=== PATIENT | male | born 1995 | race Caucasian/White ===

== ENCOUNTER 2017-08-10 15:01 | Emergency (ER) | payer BC ==
[~2017-08-10] VITALS: Ht 170.2 cm; Wt 62.6 kg
[~2017-08-10 15:01] MED LIST: FLUO40CA8 PO
[2017-08-10 15:09] VITALS: TEMP 36.3; Ht 170.2 cm; Wt 62.6 kg
[2017-08-10] MEDS ORDERED: LORA-741 PO (15:34)
[2017-08-10] MEDS ORDERED: SERT-234 PO (15:34)
[2017-08-10] MEDS ORDERED: NAPR220T PO (15:34)
[2017-08-10] MEDS ORDERED: SODIUM CHLORIDE 0.9% 1000ML 1,000 ML IV STA (15:42)
[2017-08-10] MEDS ORDERED: DiphenhydrAMINE HCL 50 MG/ML VIAL IV STA (15:42)
[2017-08-10] MEDS ORDERED: PROCHLORPERAZINE 5 MG/ML 2 ML VIAL IV STA (15:42)
--- NOTE | 2017-08-10 16:00 | EMERGENCY ROOM VISIT NOTE ---
History First contact with patient: 15:34 Chief Complaint: HEADACHE Stated Complaint: HEADACHE, NAUSEA W/VOMITING History of Present Illness The patient is a 21 year old male who presents to the Emergency Room via private vehicle accompanied by girlfriend with complaints of "headache, nausea with vomiting". The patient states that he's been experiencing headaches for many years. He states that he follows with his family doctor. He states that 2 days ago he developed a headache of gradual onset that acutely worsened. He states that he tried sleeping it off and it did not go away. He states that he had Aleve earlier without relief. He notes this is not the worse headache of his life but is certainly up there. He points to the front portion of his head radiating down the back to the neck as a location of pain that he currently rates as an 8.5/10. There is associated nausea and vomiting 4 episodes today. There are associated chills but no fevers. He denies any speech troubles, extremity weakness, formal diagnosis of migraines, fevers, chest pain, abdominal pain, drug use. Immunizations are up-to-date. There is photophobia as well as sensitivity to sounds. Review of Systems A complete 10-point Review of Systems was discussed with the patient, with pertinent positives and negatives listed in the History of Present Illness. All remaining Review of Systems questions can be considered negative unless otherwise specified. Past Medical/Surgical History Medical Problems: (1) Kidney stones Surgical Problems: (1) No history of previous surgery Family History FH: cancer FH: diabetes mellitus FH: gallbladder disease FH: heart disease FH: hypertension FH: kidney disease Social History Smoking Status: Never Smoker Alcohol Use: occasionally Marital Status: single Housing Status: lives with family Occupation Status: unemployed Current/Historical Medications Scheduled Lorazepam (Ativan), 0.5 MG PO PRN UD Naproxen Sodium (Aleve), 440 MG PO PRN UD Sertraline (Zoloft), 100 MG PO DAILY Physical Exam Vital Signs Date Time Temp Pulse Resp B/P (MAP) Pulse Ox O2 Delivery O2 Flow Rate FiO2 08/10/17 17:57 72 18 129/69 99 08/10/17 16:56 64 18 118/71 99 Room Air 08/10/17 15:09 36.3 72 16 147/91 99 Room Air Physical Exam VITAL SIGNS - Vital signs and nursing notes were reviewed. Stable. Afebrile. GENERAL -21-year-old male appearing his stated age who is in no acute distress. Communicates well with provider and answers questions appropriately. SKIN - Without rashes. No petechial rashes. There are some erythematous dark lesions on the patient's arms that are in splotches. HEAD - NC/AT. EYES - PERRL with EOMI bilaterally. Sclera anicteric. No hyphema. EARS - No deformities of external structures noted on gross examination bilaterally. No pain elicited with palpation of the tragus bilaterally. External auditory canals without discharge or otorrhea. Tympanic membranes pearly back without retraction or bulging. No fluid or purulent material visualized behind the TM. Handle of malleus, umbo, cone of light, pars tensa/ flaccid all easily visualized. NOSE - Midline and without cyanosis. No epistaxis or purulent drainage noted. Septum midline without deviation or septal hematoma noted. MOUTH/OROPHARYNX - Without perioral cyanosis. Buccal mucosa pink and moist and without leukoplakia. Tongue midline with equal elevation of palate bilaterally. No tonsillar hypertrophy, erythema, or exudates noted. Fair dentition noted. NECK - Neck with FROM. Supple to palpation. No lymphadenopathy noted. No nuchal rigidity. There is paraspinal muscular tenderness. LUNGS - Chest wall symmetric without accessory muscle use, intercostals retractions, or central cyanosis. Normal vesicular breath sounds CTA B/L. No wheezes, rales, or rhonchi appreciated. CARDIAC - RRR with S1/S2. No murmur, rubs, or gallops appreciated. EXTREMITIES - No clubbing or peripheral cyanosis. No pretibial edema present. + 5/5 strength noted in UE/LE bilaterally. NEUROLOGIC - Cranial nerves II through XII grossly intact. Sensory intact to light touch throughout. PSYCH - A&O, and cooperates fully with examiner. Pt is very pleasant and interacts well with examiner. Medical Decision & Procedures ER Provider Diagnostic Interpretation: HEAD CT NONCONTRAST CT DOSE: 537.48 mGy.cm HISTORY: Headache TECHNIQUE: Multiaxial CT images of the head were performed without the use of intravenous contrast. Automated exposure control was utilized for this study. A dose lowering technique was utilized adhering to the principles of ALARA. Comparison: None. Findings: The paranasal sinuses and mastoid air cells are clear. The calvarium and skull base are intact. The ventricles and sulci are within normal limits. There is no mass, hematoma, midline shift, or acute infarct. Impression: No acute intracranial abnormality. Electronically signed by: Eddie Person M.D. 08/10/2017 5:17 PM Dictated Date/Time: 08/10/2017 5:11 PM Laboratory Results 08/10/17 16:05 Red Blood Count 5.11, Mean Corpuscular Volume 85.7, Mean Corpuscular Hemoglobin 29.2, Mean Corpuscular Hemoglobin Concent 34.0, Mean Platelet Volume 10.6, Neutrophils (%) (Auto) 66.3, Lymphocytes (%) (Auto) 24.3, Monocytes (%) (Auto) 7.8, Eosinophils (%) (Auto) 1.1, Basophils (%) (Auto) 0.3, Neutrophils # (Auto) 4.24, Lymphocytes # (Auto) 1.55, Monocytes # (Auto) 0.50, Eosinophils # (Auto) 0.07, Basophils # (Auto) 0.02 08/10/17 16:05 Test 08/10/17 16:05 White Blood Count 6.39 K/uL (4.8-10.8) Red Blood Count 5.11 M/uL (4.7-6.1) Hemoglobin 14.9 g/dL (14.0-18.0) Hematocrit 43.8 % (42-52) Mean Corpuscular Volume 85.7 fL (80-100) Mean Corpuscular Hemoglobin 29.2 pg (25-34) Mean Corpuscular Hemoglobin Concent 34.0 g/dl (32-36) Platelet Count 186 K/uL (130-400) Mean Platelet Volume 10.6 fL (7.4-10.4) Neutrophils (%) (Auto) 66.3 % Lymphocytes (%) (Auto) 24.3 % Monocytes (%) (Auto) 7.8 % Eosinophils (%) (Auto) 1.1 % Basophils (%) (Auto) 0.3 % Neutrophils # (Auto) 4.24 K/uL (1.4-6.5) Lymphocytes # (Auto) 1.55 K/uL (1.2-3.4) Monocytes # (Auto) 0.50 K/uL (0.11-0.59) Eosinophils # (Auto) 0.07 K/uL (0-0.5) Basophils # (Auto) 0.02 K/uL (0-0.2) RDW Standard Deviation 40.7 fL (36.4-46.3) RDW Coefficient of Variation 12.9 % (11.5-14.5) Immature Granulocyte % (Auto) 0.2 % Immature Granulocyte # (Auto) 0.01 K/uL (0.00-0.02) Erythrocyte Sedimentation Rate 4 mm/hr (0-14) Anion Gap 8.0 mmol/L (3-11) Est Creatinine Clear Calc Drug Dose 126.2 ml/min Estimated GFR () 146.5 Estimated GFR (Non- 126.4 BUN/Creatinine Ratio 18.5 (10-20) Calcium Level 9.6 mg/dl (8.5-10.1) Magnesium Level 2.2 mg/dl (1.8-2.4) Total Bilirubin 1.7 mg/dl (0.2-1) Aspartate Amino Transf (AST/SGOT) 18 U/L (15-37) Alanine Aminotransferase (ALT/SGPT) 20 U/L (12-78) Alkaline Phosphatase 96 U/L (45-117) C-Reactive Protein < 0.29 mg/dl (0-0.29) Total Protein 8.0 gm/dl (6.4-8.2) Albumin 4.6 gm/dl (3.4-5.0) Globulin 3.4 gm/dl (2.5-4.0) Albumin/Globulin Ratio 1.4 (0.9-2) Lyme Disease IgG Antibody NEG (NEG) Medications Administered Medications (Trade) Dose Ordered Sig/Marylin Route Start Time Stop Time Status Last Admin Dose Admin Sodium Chloride 1,000 ml @ 999 mls/hr Q1H1M STAT IV 08/10/17 15:42 08/10/17 16:42 DC 08/10/17 16:53 999 MLS/HR Prochlorperazine Edisylate (Compazine Inj) 10 mg NOW STAT IV 08/10/17 15:42 08/10/17 15:44 DC 08/10/17 16:53 10 MG Diphenhydramine HCl (Benadryl Inj) 25 mg NOW STAT IV 08/10/17 15:42 08/10/17 15:44 DC 08/10/17 16:53 25 MG Medical Decision Patient was seen and evaluated as above. He presents to us today with a headache, nausea and vomiting. He states that he has been experiencing headaches off and on for the past few years and has been seeing his family doctor. He states that 2 days ago he was to see his family doctor, and was informed that if his headaches change or worsen he is to go to the emergency department. He states that he developed one yesterday, that was of gradual onset and is now in the front of his head radiating to the back of his head rated as an 8.5/10. He states this is different than previous. It is not the worse headache of his life. There are associated nausea, vomits and chills. He denies any slurred speech, unilateral weakness, formal diagnosis of migraine , fever, chest pain, abdominal pain, drug use. He states that he is sensitive to sound and lites. IV access was initiated, the above workup was performed. He was given Compazine and Benadryl was reevaluated and was feeling much better. CT of the head was negative. No leukocytosis or anemia. ESR and CRP are normal. No evidence of kidney or liver failure. Bilirubin is high at 1.7 and he is informed to follow up regarding this. There is no abdominal pain. Prior to the patient being discharged I did add on a Lyme screen. I do not suspect that his symptoms are from Lyme disease necessarily, but given the state that he lives in [place], and his headaches of unexplained origin at this time do believe that this is warranted. He was then educated upon management, educated upon worrisome symptoms which to return, had questions prior to discharge, and was discharged home in good condition. He is to follow family doctor. The test was noted to be for IgM at this time will await for the bands testing. In the evaluation and treatment of this patient, the following differential diagnoses were considered: Migraine Headache, Intracranial Hemorrhage, Subdural Hematoma, Subarachnoid Hemorrhage, Cerebral Aneurysm, Temporal/Giant Cell Arteritis, Tension Headache, Meningitis, Encephalitis, or Hydrocephalus. Impression Primary Impression: Headache Departure Information Dispostion Home / Self-Care Condition GOOD Referrals Zach Walden MD (PCP) Patient Instructions My [facility] Additional Instructions You have been treated in the Emergency Department for a Headache. You have received pain medicine in the emergency department which impairs your ability to operate a vehicle. It is illegal for you to drive after receiving these medicines. For pain control, you can use the following [id number]-[id number] medicines (if >12 yo): - Regular strength (325mg/tab) Tylenol (acetaminophen) 2 tabs every 4-6 hours as needed. Do not exceed 12 tablets in a 24 hour period. Avoid taking more than 3 grams (3000 mg) of Tylenol per day. This includes any other sources of acetaminophen you may take on a regular basis. - Regular strength (200 mg/tab) Advil (ibuprofen) 1-2 tabs every 4-6 hours as needed. Do not exceed a dose of 3200 mg per day. You should relax in a quiet, dark place for the rest of the day. Avoid any possible triggers including: cigarette smoke, caffeine, nicotine, chocolate, wine, beer, loud noises or music, or bright lights. You should schedule a follow-up appointment in 2-3 days with your Primary Care Provider or established Neurologist for further evaluation and treatment of your Headache. Return to the Emergency Department if your current symptoms worsen despite treatment course outlined above, or if you develop any of the following symptoms : intractable pain despite aforementioned treatment course, visual disturbances , loss of vision, unilateral weakness or facial drooping, slurring of speech, loss of coordination, or loss of consciousness.
[2017-08-10 16:35] LABS: BASO % 0.3 %; BASO ABS # 0.02 K/uL (0-0.2); COMPLETE YES; EOS % 1.1 %; HEMATOCRIT 43.8 % (42-52); IG% 0.2 %; LYMPH % 24.3 %; LYMPH ABS # 1.55 K/uL (1.2-3.4); MEAN CELL VOLUME 85.7 fL (80-100); MEAN CORPUSCULAR HEMOGLOBIN 29.2 pg (25-34); MEAN PLATELET VOLUME 10.6 fL (7.4-10.4); MONO % 7.8 %; NEUT % 66.3 %; PLATELET COUNT 186 K/uL (130-400); RED BLOOD COUNT 5.11 M/uL (4.7-6.1); WHITE BLOOD COUNT 6.39 K/uL (4.8-10.8)
[2017-08-10 16:45] LABS: ALT/SGPT 20 U/L (12-78); BLOOD UREA NITROGEN 15 mg/dl (7-18); BUN/CREATININE RATIO 18.5 (10-20); C-REACTIVE PROTEIN < 0.29 mg/dl (0-0.29); CALCIUM 9.6 mg/dl (8.5-10.1); CARBON DIOXIDE 27 mmol/L (21-32); CHLORIDE 105 mmol/L (98-107); CREATININE 0.82 mg/dl (0.60-1.40); GLUCOSE 84 mg/dl (70-99); MAGNESIUM 2.2 mg/dl (1.8-2.4); SODIUM 140 mmol/L (136-145)
[2017-08-10 16:48] LABS: ALB/GLOB RATIO 1.4 (0.9-2); ALKALINE PHOSPHATASE 96 U/L (45-117); AST/SGOT 18 U/L (15-37)
--- NOTE | 2017-08-10 17:18 | DIAGNOSTIC IMAGING REPORT ---
HEAD CT NONCONTRAST CT DOSE: 537.48 mGy.cm HISTORY: Headache TECHNIQUE: Multiaxial CT images of the head were performed without the use of intravenous contrast. Automated exposure control was utilized for this study. A dose lowering technique was utilized adhering to the principles of ALARA. Comparison: None. Findings: The paranasal sinuses and mastoid air cells are clear. The calvarium and skull base are intact. The ventricles and sulci are within normal limits. There is no mass, hematoma, midline shift, or acute infarct. Impression: No acute intracranial abnormality. Electronically signed by: Eddie Person M.D. 08/10/2017 5:17 PM Dictated Date/Time: 08/10/2017 5:11 PM
[2017-08-10 17:57] VITALS: BP 129/69; PULSE 72; O2SAT 99
[2017-08-10 19:07] LABS: LYME DISEASE AB IGG NEG (NEG)
[2017-08-10 19:11] LABS: LYME DISEASE AB IGM EQUIVOCAL (NEG)
== END 2017-08-10 17:57 | disposition home or self-care (01) ==
LOC: C.EDB 15:03 → C.EDC 17:57
DX: R51 Headache (principal); R11.2 Nausea with vomiting, unspecified; Z87.442 Personal history of urinary calculi; Z83.3 Family history of diabetes mellitus; Z82.49 Family history of ischemic heart disease and other diseases of the circulatory system